=== PATIENT | male | born 1960 | race African-American/Black ===

== ENCOUNTER 2016-12-18 08:33 | Outpatient (CLI) | payer BC ==
[2016-12-18 12:14] LABS: Cardiac Risk 3.9 (Less than 4.5)
== END 2016-12-18 08:34 | disposition home or self-care (01) ==
LOC: NAVSJIPCSP 08:33
PROVIDERS: ATTEND Internal Medicine
DX: Z00.00 Encounter for general adult medical examination without abnormal findings (principal)
CPT/HCPCS: 36415; 80061